=== PATIENT | female | born 1985 | race Caucasian/White ===

== ENCOUNTER → 2023-10-30 06:21 | Day surgery (SDC) | payer BC, SELFPAY | LOC: GI 06:21 | PROVIDERS: ATTENDING PHYSICIAN Surgery | DX: K62.5 Hemorrhage of anus and rectum (principal); K64.9 Unspecified hemorrhoids; K62.89 Other specified diseases of anus and rectum; D12.8 Benign neoplasm of rectum | CPT/HCPCS: 45380; 88305 ==

== ENCOUNTER 2023-12-31 06:16 | Day surgery (SDC) | payer BC, SELFPAY ==
[2023-12-31 11:51] VITALS: BMI 20.6
[2023-12-31 11:52] VITALS: BP 105/70; BMI 20.6
[2023-12-31 14:08] VITALS: BP 103/76
[2023-12-31 14:15] VITALS: BP 92/66
[2023-12-31 14:30] VITALS: BP 105/68
== END 2023-12-31 14:55 | disposition home or self-care (01) ==
LOC: GI 06:16
PROVIDERS: ATTENDING PHYSICIAN Internal Medicine Gastroenterology
DX: C20 Malignant neoplasm of rectum (principal); D12.8 Benign neoplasm of rectum
CPT/HCPCS: 45338; 88305; 88342

== ENCOUNTER 2024-04-03 07:24 | Day surgery (SDC) | payer BC, SELFPAY ==
[2024-04-03 07:56] VITALS: BMI 21.3
[2024-04-03 08:06] VITALS: BP 111/69
[2024-04-03 08:11] VITALS: BMI 21.3
[2024-04-03 08:21] VITALS: BMI 21.7
[2024-04-03 10:08] VITALS: BP 98/62
[2024-04-03 10:10] VITALS: BP 98/62
[2024-04-03 10:15] VITALS: BP 97/64
[2024-04-03 10:30] VITALS: BP 100/67
[2024-04-03 10:45] VITALS: BP 102/73
== END 2024-04-03 10:55 | disposition home or self-care (01) ==
LOC: GI 07:24
PROVIDERS: ATTENDING PHYSICIAN Internal Medicine Gastroenterology
DX: T18.5XXA Foreign body in anus and rectum, initial encounter (principal); W44.9XXA Unspecified foreign body entering into or through a natural orifice, initial encounter; K64.0 First degree hemorrhoids; Z86.010 Personal history of colon polyps; Z48.815 Encounter for surgical aftercare following surgery on the digestive system; Z98.890 Other specified postprocedural states
CPT/HCPCS: 45332; 45331; 88305